=== PATIENT | male | born 1945 | race Caucasian/White ===

== ENCOUNTER 2024-01-18 07:36 | Day surgery (SDC) | payer MEDICARE ==
[2024-01-10 11:39] LABS: BASOPHILS # (AUTO) 0.1 X10'3 (0-0.2); BASOPHILS % (AUTO) 1.7 % (0-1); EOSINOPHILS # (AUTO) 0.1 X10'3 (0-0.9); EOSINOPHILS % (AUTO) 1.1 % (0-6); LYMPHOCYTES # (AUTO) 1.4 X10'3 (1.1-4.8); LYMPHOCYTES % (AUTO) 16.7 % (21-51); MEAN CORPUSCULAR HEMOGLOBIN 33.6 PG (27.0-31.0); MEAN CORPUSCULAR HGB CONC 33.5 g/dL (33.0-36.5); MEAN CORPUSCULAR VOLUME 100.1 FL (78-98); MEAN PLATELET VOLUME 7.1 FL (7.4-10.4); MONOCYTES # (AUTO) 0.7 X10'3 (0-0.9); MONOCYTES % (AUTO) 7.9 % (2-12); NEUTROPHILS # (AUTO) 6.3 X10'3 (1.8-7.7); NEUTROPHILS % (AUTO) 72.6 % (42-75); PRE OP HEMATOCRIT 36.9 % (42.0-52.0); PRE OP HEMOGLOBIN 12.4 g/dL (14.0-17.9); PRE OP PLATELET COUNT 199 X10'3 (140-440); PRE OP WHITE BLOOD COUNT 8.6 10'3 (4.8-10.8); RED BLOOD COUNT 3.69 X10'6 (4.70-6.10); RED CELL DISTRIBUTION WIDTH 22.1 % (11.5-14.5)
[2024-01-10 11:52] LABS: ALBUMIN 3.7 G/DL (3.4-5.0); ALBUMIN/GLOBULIN RATIO 1.2 (1.1-1.5); ALKALINE PHOSPHATASE 59 IU/L (46-116); BLOOD UREA NITROGEN 24 MG/DL (7-18); CALCIUM 8.8 MG/DL (8.5-10.1); CHLORIDE 108 MMOL/L (99-107); PRE OP ALT 26 U/L (30-65); PRE OP ANION GAP 3 (8-16); PRE OP AST 16 U/L (10-37); PRE OP BILIRUB, TOTAL 0.6 MG/DL (0.0-1.0); PRE OP GLUCOSE 90 MG/DL (70-104); PRE OP POTASSIUM 4.2 MMOL/L (3.4-5.1); PRE OP SODIUM 141 MMOL/L (135-145); TOTAL PROTEIN 6.9 G/DL (6.4-8.2); eGFR > 90 ML/MIN
[2024-01-10 11:57] LABS: ANISOCYTOSIS 3+; ELLIPTOCYTES FEW; PLATELET ESTIMATE NORMAL
[2024-01-10 12:00] LABS: TEAR DROP CELLS FEW
[2024-01-18] VITALS (19 sets, daily range): BP systolic 118–157; BP diastolic 53–77; PULSE 44–75; RESP 11–22; TEMP 97.6; O2SAT 91–99
[~2024-01-18] VITALS: Ht 193 cm; Wt 81.7 kg
[2024-01-18] MEDS: ceFAZolin 2gm in dextrose, iso 50 ML IV ONE (05:30)
[~2024-01-18 07:36] MED LIST: CHOL500044 PO; DOCO1CAP11 PO; MULT-1085 PO; PANT-47 PO; TADA5TAB2 PO; VITE400C PO
[2024-01-18] MEDS ORDERED: fentaNYL/PF 50MCG/1 ML 2ML syringe IV PRN ×2 (08:15)
[2024-01-18] MEDS ORDERED: ringers solution, lacted 1,000 ML IV SCH (08:15)
[2024-01-18] MEDS ORDERED: morphine 4 MG/ML inj SYRINge IV PRN (08:15)
[2024-01-18] MEDS ORDERED: hydrALAZINE 20mg/ml inj. IV PRN (08:15)
[2024-01-18] MEDS ORDERED: labetalol 20mg/4ml (5mg/ml) syringe IV PRN (08:15)
[2024-01-18] MEDS ORDERED: famotidine 20mg tablet PO ONE (08:30)
[2024-01-18] MEDS: famotidine 20mg tablet PO ONE (08:43)
[2024-01-18] MEDS: ringers solution, lacted 1,000 ML IV SCH (08:44)
[2024-01-18] MEDS ORDERED: BUPIVAcaine/PF 2.5mg/ml (0.25%) 10ml vial ONE (09:48)
[2024-01-18] MEDS ORDERED: LIDOcaine 1% (10mg/ml)w/preservative inj. 20ml MDV ONE (09:50)
[2024-01-18] MEDS ORDERED: rocuronium 10mg/ml inj IV ONE (10:18)
[2024-01-18] MEDS ORDERED: propofol inj 20 ML IV ONE (10:18)
[2024-01-18] MEDS ORDERED: LIDOcaine 2% (20mg/ml) 5ml vial ONE (10:18)
[2024-01-18] MEDS ORDERED: acetaminophen 1,000mg/100ml IV 100 ML IV ONE (10:18)
[2024-01-18] MEDS ORDERED: ondansetron/PF 4mg/2ml inj ONE (10:18)
[2024-01-18] MEDS ORDERED: glycopyrrolate 0.2mg/ml inj ONE (10:18)
[2024-01-18] MEDS ORDERED: fentaNYL/PF 50MCG/1 ML 2ML syringe ONE (10:24)
[2024-01-18] MEDS: ondansetron/PF 4mg/2ml inj IV PRN (12:08)
[2024-01-18] MEDS: morphine 2 MG/ML inj. syringe IV PRN (12:17)
[2024-01-18] MEDS: HYDROcodone/acetaminophen 5mg/325mg tablet PO PRN (14:17)
== END 2024-01-18 15:50 | disposition home or self-care (01) ==
LOC: PAS 07:36
PROVIDERS: ATTEND Surgery
DX: K40.20 Bilateral inguinal hernia, without obstruction or gangrene, not specified as recurrent (principal); K42.9 Umbilical hernia without obstruction or gangrene; J44.9 Chronic obstructive pulmonary disease, unspecified; G43.909 Migraine, unspecified, not intractable, without status migrainosus; K21.9 Gastro-esophageal reflux disease without esophagitis; G47.30 Sleep apnea, unspecified; M19.90 Unspecified osteoarthritis, unspecified site; Z87.891 Personal history of nicotine dependence; Z85.828 Personal history of other malignant neoplasm of skin; Z79.899 Other long term (current) drug therapy; Z98.890 Other specified postprocedural states; Z82.49 Family history of ischemic heart disease and other diseases of the circulatory system
CPT/HCPCS: 36415; 49591; 49650; 80053; 82948; 85025; 93005; A4215; A4615; A4618; C1781; J0131; J0690; J2003; J2270; J2405; J2704; J3010; J3490; J7030; J7120; Z7506; Z7508; Z7512; Z7610; 85008

== ENCOUNTER 2024-11-03 14:15 | Outpatient (CLI) | payer MEDICARE ==
--- NOTE | 2024-11-03 15:24 | RADIOLOGY REPORT ---
CLINICAL INFORMATION: Right hip pain. TECHNIQUE: Multisequence multiplanar MRI images of the right hip were obtained without contrast. COMPARISON: None. FINDINGS: BONES: No acute fracture or osteonecrosis. Heterogeneous marrow signal throughout the visualized osseous structures, likely due to red marrow hyperplasia with interspersed areas of focal fatty marrow. JOINT: Moderate joint space narrowing of the right hip. There is fraying of the superior and anterior superior labrum. BURSAE: Mild edema and small amount of fluid in the right hip trochanteric bursa. 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 Origins of the rectus femoris tendon and hamstring tendons are intact. Distal insertion of the iliopsoas tendon is intact. MUSCLES: Normal muscle bulk. No significant atrophy. No evidence of muscle strain or tear. OTHER: No other significant findings. IMPRESSION: 1. 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 2. Fraying of the superior and anterior superior labrum of the right hip. 3. Mild right hip trochanteric bursitis. 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
--- NOTE | 2024-11-06 07:12 | RADIOLOGY REPORT ---
CLINICAL INFORMATION: 79 years old, Male; LEFT HIP PAIN. TECHNIQUE: Multisequence multiplanar MRI images of the left hip were obtained without contrast. COMPARISON: None. FINDINGS: BONES: No acute fracture or osteonecrosis. JOINT: Moderate joint space narrowing of the left hip. Fraying of the superior labrum. Chondral thinning and areas of full-thickness or near full-thickness chondral loss at the superior acetabulum. BURSAE: Mild edema and small amount of fluid in the left hip trochanteric bursa. TENDONS: Mild tendinosis of the distal gluteus medius and minimus tendons. Origins of the rectus femoris tendon and hamstring tendons are intact. Distal insertion of the iliopsoas tendon is intact. MUSCLES: [id number] fatty atrophy in the left gluteus minimus muscle. OTHER: No other significant findings. IMPRESSION: 1. Moderate arthritic changes in the left hip. 2. Fraying of the superior labrum. 3. Mild left hip trochanteric bursitis. 4. Additional findings as described above.
== END 2024-11-03 23:59 | disposition home or self-care (01) ==
LOC: MRI02 14:15
PROVIDERS: ATTEND Nurse Practitioner Family
DX: M16.0 Bilateral primary osteoarthritis of hip (principal); M25.552 Pain in left hip; M25.551 Pain in right hip; R60.0 Localized edema; M70.62 Trochanteric bursitis, left hip; M70.61 Trochanteric bursitis, right hip
CPT/HCPCS: 73721